=== PATIENT | male | born 1955 | race Caucasian/White ===

== ENCOUNTER 2019-02-17 16:13 | Emergency (ER) | payer OTHER ==
[~2019-02-17] VITALS: Wt 64.3 kg
[2019-02-17 16:59] VITALS: BP 145/91; PULSE 75; RESP 16
--- NOTE | 2019-02-17 20:12 | ERD ---
ER Documentation Chief Complaint Chief Complaint fall 02/11 and fractured R wrist: removed splint x2d 'fingers were blue' HPI 63-year-old male with history of bypass surgery, diabetes presents for right arm pain and swelling x2 days. He was at an outside hospital about 6 days ago was found to have a right comminuted nondisplaced distal radial fracture. Patient was placed in a splint and was advised to follow with orthopedic surgery. He has seen his primary care physician in has a referral pending. He states that 2 days ago however the splint was a little bit too tight and his fingers were getting a little bit blue so he took the splint off. Denies any chest pain shortness of breath. No other modifying factors noted. No other treatment tried at home. ROS All systems reviewed and are negative except as per history of present illness. Allergies Allergies: Coded Allergies: No Known Allergy (Unverified , 02/17/19) PMhx/Soc Medical and Surgical Hx: pt denies Medical Hx History of Surgery: Yes (BYPASS SX) Anesthesia Reaction: No Hx Neurological Disorder: No Hx Respiratory Disorders: No Hx Cardiac Disorders: No Hx Psychiatric Problems: No Hx Miscellaneous Medical Probl: No Hx Alcohol Use: No Hx Substance Use: No Hx Tobacco Use: No Smoking Status: Never smoker FmHx Family History: No coronary disease Physical Exam Vitals Vital Signs Date Temp Pulse Resp B/P (MAP) Pulse Ox O2 O2 Flow FiO2 Time Delivery Rate 02/17/19 98.1 75 16 145/91 98 16:59 (109) Physical Exam Const: No acute distress Resp: Clear to auscultation bilaterally Cardio: Regular rate and rhythm, no murmurs Skin: No petechiae or rashes Back: No midline or flank tenderness Neur: Awake and alert Psych: Normal Mood and Affect Upper Extremity -right: Skin: No laceration, there is swelling and ecchymosis noted over the right wrists and hands Compartments: Soft Motor: Full active range of motion shoulder/elbow/there is decreased range of motion of the wrist and hands due to pain Sensation: Intact shoulder/pinky/middle finger/thumb web space Bones: Nontender humerus/elbow/forearm/there is tenderness to palpation over the right wrist area Snuffbox: Nontender Joints: Right wrist swelling noted Pulses/Perfusion: 2+ radial, Capillary refill < 2 seconds Procedures/MDM Splint Note Type: Right wrist volar splint Location: Right wrist Indication: Right distal radial fracture, nondisplaced, comminuted Splint Assessment: Neurovascularly intact post splint placement with good fit. Medical Decision Making: Differential diagnosis includes but not limited to fracture, dislocation, muscle strain, ligamentous sprain. Patient appeared well on physical exam. There was tenderness over the right wrist Patient was neurovascularly intact Review of outside records shows that patient has a right comminuted nondisplaced distal radial fracture Patient was placed in a splint, see procedure note above Follow up: Patient advised to follow up with ortho surgery. Information for follow up provided. Patient advised to follow up with PCP in 1-2 days. Patient advised to return to ED for new or worsening symptoms. Patient stable on discharge from the ED. Disclaimer: Inadvertent spelling and grammatical errors are likely due to EHR/dictation software use and do not reflect on the overall quality of patient care. Also, please note that the electronic time recorded on this note does not necessarily reflect the actual time of the patient encounter. Departure Diagnosis: Primary Impression: Fracture of right distal radius Encounter type: initial encounter Fracture type: closed Fracture morphology: unspecified fracture morphology Qualified Codes: S52.501A - Unspecified fracture of the lower end of right radius, initial encounter for closed fracture Condition: Fair Patient Instructions: Fracture, Upper Extremity Referrals: [facility] YOU HAVE RECEIVED A MEDICAL SCREENING EXAM AND THE RESULTS INDICATE THAT YOU DO NOT HAVE A CONDITION THAT REQUIRES URGENT TREATMENT IN THE EMERGENCY DEPARTMENT. FURTHER EVALUATION AND TREATMENT OF YOUR CONDITION CAN WAIT UNTIL YOU ARE SEEN IN YOUR DOCTORS OFFICE WITHIN THE NEXT 1-2 DAYS. IT IS YOUR RESPONSIBILITY TO MAKE AN APPOINTMENT FOR FOLOW-UP CARE. IF YOU HAVE A PRIMARY DOCTOR --you should call your primary doctor and schedule an appointment IF YOU DO NOT HAVE A PRIMARY DOCTOR YOU CAN CALL OUR PHYSICIAN REFERRAL HOTLINE AT IF YOU CAN NOT AFFORD TO SEE A PHYSICIAN YOU CAN CHOSE FROM THE FOLLOWING [facility] CL[facility]ICS [facility] [address] [facility] [address] [facility]. [facility] [address] [facility] [address] [facility] [address] [facility]. [facility] [address] [facility] 7 a.m.- 11 p.m. Every Day of the Week NO APPOINTMENT OR AUTHORIZATION NEEDED Additional Instructions: Call your primary care doctor TOMORROW for an appointment during the next 1-2 days.See the doctor sooner or return here if your condition worsens before your appointment time. Follow up with orthopedic surgery ALVERTO EDWARDS DO February 17, 2019 20:12
== END 2019-02-17 20:20 | disposition home or self-care (01) ==
LOC: FTE 16:13
DX: S52.501A Unspecified fracture of the lower end of right radius, initial encounter for closed fracture (principal); E11.9 Type 2 diabetes mellitus without complications; W18.39XA Other fall on same level, initial encounter; Y92.9 Unspecified place or not applicable
CPT/HCPCS: 29125; Z7502